=== PATIENT | female | born 1935 | race Caucasian/White ===

== ENCOUNTER 2019-07-27 19:33 | Observation (INO) | payer MEDICARE, OTHER ==
[2019-07-27 20:32] LABS: #Basophils 0.1 thou/uL (0.0-0.2); #Eosinphils 0.2 thou/uL (0.0-0.7); #Lymphocytes 2.2 thou/uL (1.20-3.40); #Neutrophils 5.2 thou/uL (1.40-6.50); %Eosinophils 2.4 % (0.0-10.0); %Lymphocytes 25.8 % (21.0-51.0); %Monocytes 11.1 % (0.0-10.0); %Neutrophils 59.7 % (42.0-75.0); Hemoglobin 8.5 g/dL (12.0-16.0); Mean Corpuscular HGB CONC 32.6 g/dL (32.0-36.0); Mean Corpuscular Hemoglobin 28.1 pg (27.0-31.0); Mean Corpuscular Volume 86.4 fL (78.0-98.0); Mean Platelet Volume 6.7 fL (7.4-10.4); Platelet Count 401 thou/uL (130-400); RBC Distribution Width 15.5 % (11.5-14.5); Red Blood Cell (RBC) Count 3.01 mill/uL (4.20-5.40); White Blood Cell (WBC) Count 8.7 thou/uL (4.8-10.8)
[2019-07-27 20:45] LABS: ALT (SGPT) 10 U/L (8-55); AST (SGOT) 11 U/L (5-34); Alkaline Phosphatase 72 U/L (40-150); Anion Gap 16 mmol/L (10-20); BUN (Urea Nitrogen) 19 mg/dL (9.8-20.1); Bilirubin, Total 0.6 mg/dL (0.2-1.2); CK (CPK) 105 U/L (29-168); Calc. Creatinine Clearance 0 mL/min (70-130); Calcium 9.5 mg/dL (7.8-10.44); Carbon Dioxide 19 mmol/L (23-31); Chloride 104 mmol/L (98-107); Estimated GFR-MDRD 29; Globulin 3.2 g/dL (2.4-3.5); Glucose 135 mg/dL (83-110); Lipase 50 U/L (8-78); Potassium 3.7 mmol/L (3.5-5.1); Protein, Total 7.2 g/dL (6.0-8.3); Sodium 135 mmol/L (136-145)
--- NOTE | 2019-07-27 21:07 | RAD ---
PORTABLE CHEST ONE VIEW: Date: 07-27-19 Time: 8:32 p.m. History: Chest pain, shortness of breath. FINDINGS/IMPRESSION: A prosthetic valve is seen. The heart size is borderline. The aorta is tortuous. The lungs are expand ed without lobar consolidation, pneumothoraces, karley pulmonary edema, or pleural effusions are ident ified. There is a fracture involving the neck of the right humerus. POS: RACHAEL
[2019-07-27 22:30] LABS: Bacteria/HPF None Seen HPF (None Seen); Bilirubin Negative (Negative); Blood, Urine Negative (Negative); Clarity Clear (Clear); Glucose, Urine (Dipstick) Normal (Negative); Leukocyte 250 Leu/uL (Negative); Nitrite Negative (Negative); Protein, Urine (Dipstick) Negative (Neg-Trace); RBC/HPF 0-3 HPF (0-3); Squamous Epithelial None Seen HPF (0-3); Urobilinogen Normal mg/dL (Less than 2)
[2019-07-27] MEDS ORDERED: cefTRIAXone\\ROCEPHIN 1 GM VIAL ONE (23:07)
[2019-07-28 00:12] LABS: Troponin I Less than 0.010 ng/mL (< 0.028)
[2019-07-28] MEDS ORDERED: Dextrose 50% Abboject 50 ML SYRINGE SLOW IVP PRN (01:16)
[2019-07-28] MEDS ORDERED: Dextrose 5% in Water 1,000 ML IV PRN (01:16)
[2019-07-28] MEDS ORDERED: HumaLOG 300 UNITS/3 ML VIAL SC PRN ×2 (01:16)
[2019-07-28] MEDS ORDERED: hydrALAZINE 20 MG/ML VIAL SLOW IVP PRN (01:16)
[2019-07-28] MEDS: Acetaminophen 325 MG TAB PO PRN ×4 (01:30→21:26)
[2019-07-28 02:24] VITALS: BMI 27.1
--- NOTE | 2019-07-28 02:55 | HP ---
PRIMARY CARE PHYSICIAN: Dr. Elena Charlton. CHIEF COMPLAINT: "I have been having a very hard this past month." HISTORY OF PRESENT ILLNESS: Ms. Chavez is a very pleasant 84-year-old female, who has a history of diabetes mellitus as well as atrial fibrillation. She had a mitral valve replacement. She says about a year ago in [place] and says that in the past month she has been having a very hard. She says that about a month ago, she fell and fractured her humerus and wrist. She says she saw Dr. Cunningham about this and because of her age, they felt it was best to do heal conservatively. She says that she had gone to rehab for several weeks and then returned to an assisted living facility at the [facility]. She initially was living there independently and then transitioned to assisted living, but says she did not do very well with this because she was not getting the help that she needed and then went back to the independent part, but then had home instead come where she has 24 hour care. She says that over the last few weeks she has been having trouble sleeping, saying that it is hard to breathe when she lays flat and she has to sit almost upright in order to breathe. She says that when she does lay back, she feels a pressure all over her chest or heaviness. She also says that she has been snoring a lot as well and in some times during the day she will have periods where she just feels like a coldness in her body and she feels anxious or shaky. This has been going on for the last 3 to 4 days. She also notes some swelling in her feet, but says that this has been normal for her and not any different. Her son has been here over the weekend to visit and he was leaving to go back to [place] where he lives and she felt that she probably should have this checked out because she will be alone in the next day. When she was evaluated in the ER, she had a chest x-ray which was essentially clear. Lab work was done, which also did not show any significant findings other than some pyuria and she is being placed in observation. When asked if she has had any chest done for her heart recently, she says that she has had some EKGs done, but she is not really sure if she has had any echo. She says that she sees a Dr. Madai Estevez at the [facility] in the [place] and she had planned to do what sounds like a possible echocardiogram, but this was to be done in August of this year. REVIEW OF SYSTEMS: CONSTITUTIONAL: She did have fever about 2 days ago as 100.6, which was checked by her provider. No chills. No night sweats. No weight loss. HEENT: No headaches. No dizziness. No visual changes. No sore throat. No rhinorrhea, neck pain. No adenopathy. PULMONARY: No hemoptysis, no cough, no wheezing. CARDIOVASCULAR: As the history of present illness. GASTROINTESTINAL: She denies any abdominal pain. No nausea. No vomiting. No change in bowels. GENITOURINARY: No urinary frequency or hematuria. No hesitancy. NEUROLOGIC: No focal weakness or numbness. No seizures. PSYCHIATRIC: No symptoms of anxiety or depression. SKIN AND INTEGUMENT: No skin changes. No rash. PAST MEDICAL HISTORY: Significant for a humerus and wrist fracture on the right, history of atrial fibrillation, but she says this went away ever since she had her mitral valve replaced. Also has a history of diabetes mellitus, diabetic peripheral neuropathy, chronic kidney disease, and hypothyroidism. PAST SURGICAL HISTORY: She had a minimally invasive mitral valve replacement on November 19, 2018. She has had a cholecystectomy, hysterectomy as well. ALLERGIES: CODEINE, WHICH CAUSES A RASH. SOCIAL HISTORY: She is a nonsmoker. She occasionally drinks wine. She is . She has one living child, she had 2 originally. FAMILY HISTORY: There are no significant diseases in the family. CURRENT MEDICATIONS: 1. Alprazolam 0.25 mg once at bedtime. 2. Singulair 10 mg daily. 3. Amiodarone 200 mg once daily. 4. Atorvastatin 10 mg daily. 5. Furosemide 20 mg daily. 6. Eliquis 2.5 mg twice a day. 7. Flomax 0.4 mg daily. 8. Metoprolol succinate 50 mg daily. 9. Effient 10 mg once a day. 10. Levothyroxine 100 mcg daily. 11. Protonix 40 mg daily. 12. Potassium chloride 20 mEq once a day. 13. Hydralazine 50 mg t.i.d. 14. Trelegy Ellipta 100/62.5 one puff daily. PHYSICAL EXAMINATION: GENERAL: She is alert and oriented. She appears a little bit anxious. She is well developed and well nourished, no acute distress however. VITAL SIGNS: Blood pressure is 152/69, heart rate 99, respiratory rate of 18, temperature is 98.2, O2 saturation is 98% on room air. HEENT: Pupils are equal, round, and reactive. Extraocular muscles are intact. Sclerae anicteric. Throat, no erythema, no exudates. NECK: No adenopathy. No bruits. LUNGS: Clear to auscultation. There is no wheezing, no rales, no rhonchi. CARDIOVASCULAR: She has a normal S1, S2. There is no S3 or S4. No murmurs, clicks or rubs. ABDOMEN: Obese. It is soft. It is nontender, nondistended. Positive for bowel sounds. There is no rebound or guarding. EXTREMITIES: There is no edema. She has some varicose veins. No calf tenderness. No joint effusions and her right arm is in a sling. NEUROLOGIC: She is moving all extremities. SKIN AND INTEGUMENT: No skin changes. No rash. LAB RESULTS: Her EKGs, sinus rhythm, the rate is 85. She has some poor R-wave progression in V1 through V3 and some T-wave inversion in 1 and aVL. This is by my reading. Chest x-ray was negative for any effusions or any infiltrates and this is also by my reading. The white blood cell count 8.7, hemoglobin 8.5, hematocrit is 26, platelet count is 401. Sodium 135, potassium 3.7, chloride is 104, CO2 is 19, BUN of 19, creatinine 1.69, glucose is 135. Troponin is less than 0.010. Urinalysis was positive for leukocyte esterase, but otherwise okay. ASSESSMENT: This is a pleasant 84-year-old female, who presents with dyspnea on exertion and what sounds historically like some PND and orthopnea despite her proBNP being normal. She will be placed in observation. We will request her records from Dr. Estevez and her phone number is [phone]. We will get an echocardiogram and hopefully, we can compare it to the ones from Dr. Estevez. If there is a significant decrease in her ejection fraction, then potentially further testing may need to be done. We will also consult Cardiology. 1. Pyuria. The patient is basically asymptomatic and only her UA is only significant for white cells. I suspect she does not have any significant urinary tract infection and therefore, additional antibiotics are not warranted at this time. 2. Diabetes mellitus. We will need to reconcile and restart her medications and also place her on a sliding scale. 3. Chronic kidney disease. In review of her records, her chronic kidney disease appears to be stable with only a slight increase in the creatinine. 4. Hypothyroidism. Clinically, she is euthyroid. We can check a TSH with her a.m. labs. 5. Anxiety. She appears to have some symptoms consistent with anxiety and it is possible that all of her symptoms may be in fact related to generalized anxiety. Job ID: [id number]
[2019-07-28 03:20] LABS: #Basophils 0.1 thou/uL (0.0-0.2); #Eosinphils 0.2 thou/uL (0.0-0.7); #Lymphocytes 1.7 thou/uL (1.20-3.40); #Neutrophils 4.5 thou/uL (1.40-6.50); %Basophils 0.8 % (0.0-1.0); %Eosinophils 3.3 % (0.0-10.0); %Lymphocytes 22.8 % (21.0-51.0); %Monocytes 12.8 % (0.0-10.0); %Neutrophils 60.3 % (42.0-75.0); Hemoglobin 7.8 g/dL (12.0-16.0); Mean Corpuscular Hemoglobin 28.5 pg (27.0-31.0); Mean Platelet Volume 6.6 fL (7.4-10.4); Platelet Count 354 thou/uL (130-400); RBC Distribution Width 15.5 % (11.5-14.5); Red Blood Cell (RBC) Count 2.72 mill/uL (4.20-5.40); White Blood Cell (WBC) Count 7.4 thou/uL (4.8-10.8)
[2019-07-28 03:24] LABS: Troponin I Less than 0.010 ng/mL (< 0.028)
[2019-07-28 04:29] LABS: Anion Gap 15 mmol/L (10-20); BUN (Urea Nitrogen) 17 mg/dL (9.8-20.1); Calc. Creatinine Clearance 31 mL/min (70-130); Calcium 9.1 mg/dL (7.8-10.44); Carbon Dioxide 19 mmol/L (23-31); Chloride 107 mmol/L (98-107); Estimated GFR-MDRD 32; Glucose 96 mg/dL (83-110); Potassium 3.6 mmol/L (3.5-5.1); Sodium 137 mmol/L (136-145)
[2019-07-28] MEDS: Famotidine 20 MG TAB PO SCH (08:36)
--- NOTE | 2019-07-28 08:42 | PDOC.HOSPP ---
- Subjective Encounter Date: 07/28/19 Subjective: feels much better today, she was able to sleep flat on her back she is not sure if she actually had an echocardiogram with Dr Estevez. - Objective Vital Signs & Weight: Vital Signs (12 hours) Temp Pulse Resp BP Pulse Ox 07/28/19 08:00 98.5 F 71 16 148/65 H 94 L 07/28/19 03:57 98.8 F 72 18 168/71 H 96 07/28/19 00:47 98.7 F 76 20 175/74 H 95 Weight Weight 160 lb 11.2 oz I&O: 07/27/19 07/28/19 07/29/19 06:59 06:59 06:59 Intake Total 440 Output Total 650 300 Balance -210 -300 Result Diagrams: 07/28/19 02:54 07/28/19 02:54 Hospitalist ROS - Medication Medications: Active Medications Generic Name Dose Route Start Last Admin Trade Name Freq PRN Reason Stop Dose Admin Acetaminophen 650 mg 07/28/19 01:16 07/28/19 01:30 Tylenol PO 650 mg Q4H PRN Administration Headache/Fever/Mild Pain (1-3) Famotidine 20 mg 07/28/19 09:00 07/28/19 08:36 Pepcid PO 20 mg DAILY ANTONIO Administration - Exam General Appearance: NAD, awake alert Eye: PERRL, anicteric sclera ENT: normocephalic atraumatic, no oropharyngeal lesions, moist mucosa Neck: supple, symmetric, no JVD, no thyromegaly, no lymphadenopathy, no carotid bruit Heart: RRR, no murmur, no gallops, no rubs, normal peripheral pulses Respiratory: CTAB, no wheezes, no rales, no ronchi, normal chest expansion, no tachypnea, normal percussion Gastrointestinal: soft, non-tender, non-distended, normal bowel sounds, no palpable masses, no hepatomegaly, no splenomegaly, no bruit Extremities: no cyanosis, no clubbing, no edema Skin: normal turgor, no lesions, no rashes Neurological: CN's grossly intact, normal sensation to touch, no weakness, no focal deficits, no new deficit Musculoskeletal: normal tone, normal strength, no muscle wasting Hosp A/P (1) Shortness of breath Code(s): R06.02 - SHORTNESS OF BREATH Status: Acute (2) Diabetes Code(s): E11.9 - TYPE 2 DIABETES MELLITUS WITHOUT COMPLICATIONS Status: Chronic (3) Anemia Code(s): D64.9 - ANEMIA, UNSPECIFIED Status: Chronic (4) CKD (chronic kidney disease) Code(s): N18.9 - CHRONIC KIDNEY DISEASE, UNSPECIFIED Status: Chronic (5) Hypothyroidism Code(s): E03.9 - HYPOTHYROIDISM, UNSPECIFIED Status: Chronic - Plan cardiac---awaiting the echo but seems to be doing well. will resume her cardiac meds DM---continue her regimens anemia---seems chronic, will recheck in am. ua is weakly poistive, no ATB given
[2019-07-28] MEDS: Tamsulosin HCl 0.4 MG CAP PO SCH (10:49)
[2019-07-28] MEDS: Furosemide 20 MG TAB PO SCH (10:49)
[2019-07-28] MEDS: hydrALAZINE 25 MG TAB PO SCH ×3 (10:49→21:25)
[2019-07-28] MEDS: Atorvastatin Calcium 10 MG TAB PO SCH (10:49)
[2019-07-28] MEDS: Amiodarone 200 MG TAB PO SCH (10:49)
[2019-07-28] MEDS: Prasugrel 10 MG TAB PO SCH ×2 (10:50→11:35)
[2019-07-28] MEDS: Apixaban 2.5 MG TAB PO SCH ×3 (10:50→21:25)
[2019-07-28 13:45] LABS: Iron 29 ug/dL (50-170); Iron Binding Capacity, Total 261 mcg/dL (265-497)
--- NOTE | 2019-07-28 14:27 | CON ---
DATE OF CONSULTATION: 07/28/2019 REASON FOR CONSULTATION: Shortness of breath. HISTORY OF PRESENT ILLNESS: Ms. Chavez is a pleasant 84-year-old white female , who comes to the hospital for shortness of breath. She has multiple complaints actually. She had a mitral valve replaced minimally invasive route in [place] of 2017. She states about a month later, she had a stent placed. This was all planned this way. This was all done in [facility]. She has a painting supervisor in the [employer], Dr. Estevez. She is in the [place]. She is here, she has not felt well. She lives at the [place] [facility] from independent care to assisted living and now she is back in independent care. She had a fall recently and broke her right humerus as well as her right wrist. It was thought to just better treat this medically as she is at high risk for surgery. She is also on Eliquis and prasugrel and apparently, the Eliquis is for AFib, but she is also on amiodarone. She denies any chest pain. She only feels some discomfort on her abdomen at times, says something is on her chest. She had a bowel movement today and it was loose. She had a temperature of 100.6 two or three days ago. She had noted some swelling on her feet, but currently they are better. She is PAST MEDICAL HISTORY: 1. Paroxysmal atrial fibrillation. 2. Mitral valve replacement. 3. Type 2 diabetes. 4. Peripheral neuropathy from diabetes. 5. Chronic kidney disease. 6. Hypothyroidism. 7. Hypertension. PAST SURGICAL HISTORY: 1. Minimally invasive mitral valve replacement on November 19, 2018. 2. Cholecystectomy. 3. Hysterectomy. 4. Heart catheterization with stenting about a month after her catheterization. MEDICATIONS: Outpatient medications; 1. Alprazolam. 2. Singulair. 3. Amiodarone 200 mg a day. 4. Atorvastatin 10 mg a day. 5. Furosemide 20 mg a day. 6. Eliquis 2.5 twice a day. 7. Flomax. 8. Metoprolol succinate 50 mg a day. 9. Effient 10 mg a day. 10. Levothyroxine 100 mcg a day. 11. Protonix 40 mg a day. 12. Potassium chloride 20 mEq daily. 13. Hydralazine 50 mg t.i.d. 14. Trelegy Ellipta 100/62.5 one puff daily. ALLERGIES: CODEINE CAUSES GREG. SOCIAL HISTORY: Occasional wine use. No tobacco or drugs. FAMILY HISTORY: Noncontributory. REVIEW OF SYSTEMS: A 12-point review of systems was done and was all negative unless stated in the history of present illness. PHYSICAL EXAMINATION: VITAL SIGNS: Temperature 98.3, pulse 78, respiratory rate 18, sat 97% on room air, blood pressure 146/65. GENERAL: Awake, alert, and oriented x3, in no distress. HEENT: Normocephalic and atraumatic. NECK: Supple. LUNGS: Clear. CARDIOVASCULAR: S1 and S2. No S3 or S4. There is a grade 2/6 holosystolic murmur at the apex. No mechanical click is heard. ABDOMEN: Soft, positive bowel sounds. EXTREMITIES: No edema. SKIN: Warm and dry. LABORATORY DATA: Laboratory work was reviewed; CBC with a white count of 8.7, hemoglobin of 8.5 down to 7.8, hematocrit of 24, platelet count 454. Coags; D- dimer of 0.74. Chemistries unremarkable except for creatinine 1.56, GFR 32. Troponin is undetectable x2. BNP was 89. TSH was 0.62. Glucose was 227. UA with 250 leukocyte esterase, and 11 to 20 white cells. EKG was reviewed. Chest x-ray was reviewed. No acute cardiopulmonary issues. Mitral valve replacement is seen as well as a broken right humerus. ASSESSMENT/PLAN: 1. Shortness of breath, may be multifactorial. Echocardiogram pending. 2. History of coronary artery disease. No acute coronary syndrome. We will request records from the [facility]. 3. Fever and diarrhea. Primary Care is working this up for now. 4. Anemia. Would do iron panel to see if this is chronic anemia, if she has normal MCV and MCH, so this may or may not go with this. RDW is high. We will get iron studies as she may need to have her Eliquis discontinued. 5. Thank you for letting us to participate in the care of your patient. We will follow. RECOMMENDATIONS: 1. Echocardiogram pending. 2. Would not diurese any further. 3. Continue home regimen. 4. Continue to trend hemoglobin and do iron studies. Job ID: [id number] [facility]
[2019-07-28] MEDS ORDERED: ALPRAZolam 0.25 MG TAB PO SCH (16:15)
[2019-07-28] MEDS: Mometasone 100 MCG HFA INHALER INH SCH (18:58)
[2019-07-28] MEDS: ALPRAZolam 0.25 MG TAB PO SCH (21:25)
[2019-07-28] MEDS: Montelukast Sodium 10 mg Tablet PO SCH (21:25)
[2019-07-29] MEDS: Acetaminophen 325 MG TAB PO PRN ×2 (01:45→13:19)
[2019-07-29] MEDS ORDERED: ALPRAZolam 0.25 MG TAB PO SCH (03:15)
[2019-07-29] MEDS: Levothyroxine Sodium 100 MCG TAB PO SCH (03:44)
[2019-07-29 05:57] LABS: #Basophils 0.1 thou/uL (0.0-0.2); #Eosinphils 0.2 thou/uL (0.0-0.7); #Lymphocytes 1.6 thou/uL (1.20-3.40); #Monocytes 0.7 thou/uL (0.11-0.59); #Neutrophils 5.4 thou/uL (1.40-6.50); %Basophils 0.8 % (0.0-1.0); %Eosinophils 2.4 % (0.0-10.0); %Lymphocytes 20.4 % (21.0-51.0); %Monocytes 8.4 % (0.0-10.0); Hemoglobin 7.8 g/dL (12.0-16.0); Mean Corpuscular HGB CONC 32.4 g/dL (32.0-36.0); Mean Corpuscular Hemoglobin 28.3 pg (27.0-31.0); Mean Corpuscular Volume 87.4 fL (78.0-98.0); Mean Platelet Volume 6.6 fL (7.4-10.4); Platelet Count 346 thou/uL (130-400); RBC Distribution Width 15.3 % (11.5-14.5); Red Blood Cell (RBC) Count 2.76 mill/uL (4.20-5.40)
[2019-07-29 06:18] LABS: Anion Gap 12 mmol/L (10-20); BUN (Urea Nitrogen) 16 mg/dL (9.8-20.1); Calc. Creatinine Clearance 30 mL/min (70-130); Calcium 8.9 mg/dL (7.8-10.44); Carbon Dioxide 21 mmol/L (23-31); Chloride 107 mmol/L (98-107); Estimated GFR-MDRD 30; Glucose 102 mg/dL (83-110); Potassium 3.5 mmol/L (3.5-5.1); Sodium 136 mmol/L (136-145)
[2019-07-29] MEDS: Mometasone 100 MCG HFA INHALER INH SCH ×2 (06:50→20:16)
[2019-07-29] MEDS: Atorvastatin Calcium 10 MG TAB PO SCH (08:19)
[2019-07-29] MEDS: Furosemide 20 MG TAB PO SCH (08:19)
[2019-07-29] MEDS: Famotidine 20 MG TAB PO SCH (08:19)
[2019-07-29] MEDS: Tamsulosin HCl 0.4 MG CAP PO SCH (08:19)
[2019-07-29] MEDS: hydrALAZINE 25 MG TAB PO SCH ×3 (08:19→20:57)
[2019-07-29] MEDS: Prasugrel 10 MG TAB PO SCH (08:20)
[2019-07-29] MEDS: Amiodarone 200 MG TAB PO SCH (08:20)
[2019-07-29] MEDS: Apixaban 2.5 MG TAB PO SCH ×2 (08:20→20:57)
--- NOTE | 2019-07-29 09:54 | PDOC.HOSPP ---
- Subjective Encounter Date: 07/29/19 Subjective: she no specific complaints - Objective Vital Signs & Weight: Vital Signs (12 hours) Temp Pulse Resp BP BP Pulse Ox 07/29/19 07:13 98.1 F 70 16 149/68 H 96 07/29/19 03:06 98.2 F 66 18 142/67 H 96 07/28/19 23:32 65 18 118/57 L 95 Weight Weight 158 lb 12.8 oz I&O: 07/28/19 07/29/19 07/30/19 06:59 06:59 06:59 Intake Total 440 1160 Output Total 650 2050 Balance -210 -890 Result Diagrams: 07/29/19 05:38 07/29/19 05:38 Additional Labs: Accuchecks 07/29/19 07/28/19 07/28/19 06:01 20:57 17:01 POC Glucose 111 H 151 H 114 H 07/28/19 10:47 POC Glucose 227 H Hospitalist ROS - Medication Medications: Active Medications Generic Name Dose Route Start Last Admin Trade Name Alex PRN Reason Stop Dose Admin Acetaminophen 650 mg 07/28/19 01:16 07/29/19 01:45 Tylenol PO 650 mg Q4H PRN Administration Headache/Fever/Mild Pain (1-3) Albuterol/Ipratropium 3 ml 07/28/19 13:00 07/29/19 06:49 Duoneb NEB Not Given [id number] ANTONIO Alprazolam 0.25 mg 07/28/19 21:00 07/28/19 21:25 Xanax PO 0.25 mg HS ANTONIO Administration Amiodarone HCl 200 mg 07/28/19 09:00 07/29/19 08:20 Cordarone PO 200 mg DAILY ANTONIO Administration Apixaban 2.5 mg 07/28/19 09:00 07/29/19 08:20 Eliquis PO 2.5 mg BID ANTONIO Administration Atorvastatin Calcium 10 mg 07/28/19 09:00 07/29/19 08:19 Lipitor PO 10 mg DAILY ANTONIO Administration Famotidine 20 mg 07/28/19 09:00 07/29/19 08:19 Pepcid PO 20 mg DAILY ANTONIO Administration Furosemide 20 mg 07/28/19 09:00 07/29/19 08:19 Lasix PO 20 mg DAILY ANTONIO Administration Hydralazine HCl 50 mg 07/28/19 09:00 07/29/19 08:19 Apresoline PO 50 mg TID ANTONIO Administration Insulin Human Lispro 0 units 07/28/19 01:16 07/28/19 10:51 Humalog SC 4 unit .MODERATE SLIDING SC PRN Administration Moderate Correctional Scale Levothyroxine Sodium 100 mcg 07/29/19 06:00 07/29/19 03:44 Synthroid PO 100 mcg 0600 ANTONIO Administration Metoprolol Succinate 50 mg 07/28/19 09:00 07/29/19 08:20 Toprol Xl PO 50 mg DAILY ANTONIO Administration Mometasone Furoate 1 puff 07/28/19 18:30 07/29/19 06:50 Asmanex Hfa 100 Mcg INH Not Given BID-RT ANTONIO Montelukast Sodium 10 mg 07/28/19 21:00 07/28/19 21:25 Singulair PO 10 mg HS ANTONIO Administration Pantoprazole Sodium 40 mg 07/28/19 09:00 07/29/19 08:19 Protonix PO 40 mg DAILY ANTONIO Administration Prasugrel 10 mg 07/28/19 09:00 07/29/19 08:20 Effient PO 10 mg DAILY ANTONIO Administration Tamsulosin HCl 0.4 mg 07/28/19 09:00 07/29/19 08:19 Flomax PO 0.4 mg DAILY ANTONIO Administration - Exam General Appearance: NAD ENT: normocephalic atraumatic, no oropharyngeal lesions, moist mucosa Neck: supple, symmetric, no JVD, no thyromegaly, no lymphadenopathy, no carotid bruit Heart: RRR, no murmur, no gallops, no rubs, normal peripheral pulses Respiratory: CTAB, no wheezes, no rales, no ronchi, normal chest expansion, no tachypnea, normal percussion Gastrointestinal: tender to palpation (tender on palpation of epigastric area) Extremities: no cyanosis, no clubbing, no edema Skin: normal turgor, no lesions, no rashes Hosp A/P (1) Shortness of breath Code(s): R06.02 - SHORTNESS OF BREATH Status: Acute (2) Diabetes Code(s): E11.9 - TYPE 2 DIABETES MELLITUS WITHOUT COMPLICATIONS Status: Chronic (3) Anemia Code(s): D64.9 - ANEMIA, UNSPECIFIED Status: Chronic (4) CKD (chronic kidney disease) Code(s): N18.9 - CHRONIC KIDNEY DISEASE, UNSPECIFIED Status: Chronic (5) Hypothyroidism Code(s): E03.9 - HYPOTHYROIDISM, UNSPECIFIED Status: Chronic - Plan cardiac---awaiting the echo but seems to be doing well. will resume her cardiac meds, appreciate Cardiology follow-up. DM---continue her regimens anemia---seems chronic, and hgb stable on this hospitalisation, but I did review her labs from 04/02/2019 and her hgb was 10, so it seems that she has been slowly becoming more and more anemic---she denies melena---will order stool guaiac--will do iron studies---seems that she needs a GI workup. ua is weakly poistive, no ATB given
[2019-07-29 10:00] LABS: Iron 33 ug/dL (50-170); Iron Binding Capacity, Total 249 mcg/dL (265-497)
[2019-07-29] MEDS: Ferrous Sulfate 325 MG TAB PO SCH (16:44)
--- NOTE | 2019-07-29 18:29 | PDOC.CPN ---
- Subjective Date: 07/29/19 Time: 05:30 - Review of Systems General: denies: fever/chills, weight/appetite/sleep changes, night sweats, fatigue Respiratory: denies: cough, congestion, shortness of breath, exercise intolerance Cardiovascular: denies: chest pain, palpitation, edema, paroxysmal nocturnal dyspnea, orthopnea Gastrointestinal: denies: nausea, vomiting, diarrhea, constipation, abd pain, GI bleeding Musculoskeletal: denies: pain, tenderness, stiffness, swelling, arthritis/ arthralgias Neurological: denies: numbness, syncope, seizure, weakness - Objective Allergies/Adverse Reactions: Allergies Allergy/AdvReac Type Severity Reaction Status Date / Time codeine Allergy Rash Verified 07/28/19 01:34 Visit Medications: Current Medications Acetaminophen (Tylenol) 650 mg PO Q4H PRN PRN Reason: Headache/Fever/Mild Pain (1-3) Last Admin: 07/29/19 13:19 Dose: 650 mg Albuterol/Ipratropium (Duoneb) 3 ml NEB [id number] [facility] Last Admin: 07/29/19 12:33 Dose: Not Given Alprazolam (Xanax) 0.25 mg PO HS [facility] Last Admin: 07/28/19 21:25 Dose: 0.25 mg Amiodarone HCl (Cordarone) 200 mg PO DAILY [facility] Last Admin: 07/29/19 08:20 Dose: 200 mg Apixaban (Eliquis) 2.5 mg PO BID [facility] Last Admin: 07/29/19 08:20 Dose: 2.5 mg Atorvastatin Calcium (Lipitor) 10 mg PO DAILY [facility] Last Admin: 07/29/19 08:19 Dose: 10 mg Dextrose/Water (Dextrose 50%) 25 gm SLOW IVP PRN PRN PRN Reason: Hypoglycemia Famotidine (Pepcid) 20 mg PO DAILY [facility] Last Admin: 07/29/19 08:19 Dose: 20 mg Ferrous Sulfate (Feosol) 325 mg PO BID-WM [facility] Last Admin: 07/29/19 16:44 Dose: 325 mg Furosemide (Lasix) 20 mg PO DAILY [facility] Last Admin: 07/29/19 08:19 Dose: 20 mg Glucagon (Glucagon) 1 mg IM PRN PRN PRN Reason: Hypoglycemia Hydralazine HCl (Apresoline) 10 mg SLOW IVP Q4H PRN PRN Reason: SBP > 180 and HR < 70 Hydralazine HCl (Apresoline) 50 mg PO TID [facility] Last Admin: 07/29/19 14:34 Dose: 50 mg Dextrose/Water (D5w) 1,000 mls @ 0 mls/hr IV .Q0M PRN PRN Reason: Hypoglycemia Insulin Human Lispro (Humalog) 0 units SC .MODERATE SLIDING SC PRN PRN Reason: Moderate Correctional Scale Last Admin: 07/28/19 10:51 Dose: 4 unit Insulin Human Lispro (Humalog) 0 units SC .BEDTIME SLIDING SC PRN PRN Reason: Bedtime Correctional Scale Levothyroxine Sodium (Synthroid) 100 mcg PO 0600 [facility] Last Admin: 07/29/19 03:44 Dose: 100 mcg Metoprolol Succinate (Toprol Xl) 50 mg PO DAILY [facility] Last Admin: 07/29/19 08:20 Dose: 50 mg Mometasone Furoate (Asmanex Hfa 100 Mcg) 1 puff INH BID-RT [facility] Last Admin: 07/29/19 06:50 Dose: Not Given Montelukast Sodium (Singulair) 10 mg PO HS [facility] Last Admin: 07/28/19 21:25 Dose: 10 mg Pantoprazole Sodium (Protonix) 40 mg PO DAILY [facility] Last Admin: 07/29/19 08:19 Dose: 40 mg Prasugrel (Effient) 10 mg PO DAILY [facility] Last Admin: 07/29/19 08:20 Dose: 10 mg Tamsulosin HCl (Flomax) 0.4 mg PO DAILY [facility] Last Admin: 07/29/19 08:19 Dose: 0.4 mg Vital Signs & Weight: Vital Signs Temp Pulse Resp BP Pulse Ox 07/29/19 16:00 98.2 F 61 18 130/58 L 96 07/29/19 11:36 98.3 F 62 16 115/57 L 96 07/29/19 07:13 98.1 F 70 16 149/68 H 96 Weight 158 lb 12.8 oz - Physical Exam General: alert & oriented x3 HEENT: mucus membranes moist Neck: supple neck Cardiac: regular rate and rhythm, regular rate, systolic murmur Lungs: clear to auscultation Neuro: grossly intact Abdomen: active bowel sounds, soft, non-tender Skin: clear Musculoskeletal: normal range of motion - Labs Result Diagrams: 07/29/19 05:38 07/29/19 05:38 Troponin/CKMB Troponin I Less than 0.010 ng/mL (< 0.028) 07/28/19 02:54 - Telemetry Sinus rhythms and dysrhythmias: sinus rhythm - Assessment/Plan Assessment/Plan: 1. S/P MVR, normal funcitoning on echo today. 2. CAD, PCI to Prox LAD ALEE. Continue antiplatelet. 3. Paroxysmal afib 4. Iron deficiency Anemia 5. Fever and diarrhea PLAN: - She is on both Eliquis and effient high risk for bleeding, Her hgb is lower than baseline and it seems iron deficiency anemia. - Will stop Eliquis, continue Effient. - Work up for anemia per primary team. May need GI evaluation. - CV stable. - She is to follow up with her Inspector General in [place]. - Will sign off. Please call with any questions.
[2019-07-29] MEDS: Montelukast Sodium 10 mg Tablet PO SCH (20:57)
[2019-07-30] MEDS: Acetaminophen 325 MG TAB PO PRN (00:22)
[2019-07-30] MEDS: ALPRAZolam 0.25 MG TAB PO SCH (02:22)
[2019-07-30] MEDS: Levothyroxine Sodium 100 MCG TAB PO SCH (06:16)
[2019-07-30] MEDS: Mometasone 100 MCG HFA INHALER INH SCH (07:46)
[2019-07-30 08:07] VITALS: BP 148/65; TEMP 98.7
[2019-07-30] MEDS: Apixaban 2.5 MG TAB PO SCH (09:26)
[2019-07-30] MEDS: Amiodarone 200 MG TAB PO SCH (09:27)
[2019-07-30] MEDS: Ferrous Sulfate 325 MG TAB PO SCH (09:27)
[2019-07-30] MEDS: Tamsulosin HCl 0.4 MG CAP PO SCH (09:27)
[2019-07-30] MEDS: hydrALAZINE 25 MG TAB PO SCH (09:27)
[2019-07-30] MEDS: Prasugrel 10 MG TAB PO SCH (09:27)
[2019-07-30] MEDS: Furosemide 20 MG TAB PO SCH (09:27)
[2019-07-30] MEDS: Famotidine 20 MG TAB PO SCH (09:27)
[2019-07-30] MEDS: Atorvastatin Calcium 10 MG TAB PO SCH (09:28)
--- NOTE | 2019-07-31 06:19 | DIS ---
DATE OF ADMISSION: 07/27/2019 DATE OF DISCHARGE: 07/30/2019 HOSPITAL COURSE: The patient was admitted to our hospital on 07/27/2019. Initially, she had multiple complaints, she underwent mitral valve replacement in beginning of this year and fell recently, broke her humerus and wrist, and over the past few weeks, she has been having trouble sleeping. She stated that it is hard to breathe when lying flat, feeling pressure and heaviness all over her chest and recently feeling anxious and shaky and that is why she presented to our emergency room. During her stay, her BNP level was checked, and it was normal. A consultation with Cardiology was requested and they saw her, and echocardiogram was done, that showed no change from previous echocardiograms and did not show any acute abnormalities. She was found to be anemic and feels that her anemia has been getting worse. I did see outpatient labs done in February and her hemoglobin was done and currently it is around 8, but on a previous admission to us, her hemoglobin was around 9 and 8, so it has been fluctuating, but during her stay now, it remained stable. We did do a stool guaiac and it was negative for blood. We did do iron studies and they were low indicating iron deficiency anemia, the patient has been following with Nephrology for chronic kidney disease. Her GFR is around 30, so this could be the cause of her anemia, but she is also on blood thinners, although she is not exhibiting any signs of gastrointestinal bleed. Cardiology wanted to stop Eliquis and continue with Effient and I advised her to follow up with her Link Trainer. I also called Gastroenterology, Dr. Sophia Liz and spoke with him about her and I gave her his number, so she will call his office and schedule for a followup of possible EGD or colonoscopy, but for the time being, I started her on iron and advised her to follow with her primary care physician in 1 to 2 weeks and she most likely needs repeat blood work in a couple of months to see if she is improving. During her stay as well, her blood pressure has been on the high side. Her heart rate has been borderline low around 60s, so I increased her hydralazine from t.i.d. to q.i.d. PHYSICAL EXAMINATION: GENERAL: Today, the patient is feeling well. She complained of tension in her jaw due to the fact that she is clenching on her teeth during the night. She tried also not to take her alprazolam yesterday. VITAL SIGNS: Her blood pressure is 148/65, heart rate of 63, temperature is 98.7. HEENT: Head is nontraumatic, normocephalic. Pupils equal and reactive. Extraocular movements are intact. Nonicteric sclerae with injected conjunctivae. Oral mucosa normal. Nasal mucosa normal. NECK: Supple. No adenopathy, no mass. Thyroid is not palpable. Trachea is midline. No supraclavicular lymphadenopathy. HEART: S1 and S2, regular. No murmurs. ABDOMEN: Bowel sounds are positive, nontender abdomen. No hepatosplenomegaly. EXTREMITIES: No lower extremity edema. No cyanosis. NEUROLOGIC: Cranial nerves 2 through 12 within normal limits. Normal motor function. Normal sensory function and reflexes. LABORATORY DATA: Blood work from yesterday showed a hemoglobin of 7.8, which is the same as the day before, her platelets are 346. Her glucose has been well controlled. Last creatinine was 1.62, GFR 30. The patient will be discharged to home, advised to follow with Nephrology, Primary Care Physician and call Gastroenterology. She will be on iron supplements and Protonix as well as her hydralazine has been increased for better blood pressure control. This plan was explained to her in details by me and she verbalized understanding. More than half an hour was spent to discharge this patient. Job ID: [id number]
--- NOTE | 2019-08-03 00:35 | EKG ---
Test Reason : Blood Pressure : / mmHG Vent. Rate : 085 BPM Atrial Rate : 085 BPM P-R Int : 088 ms QRS Dur : 118 ms QT Int : 406 ms P-R-T Axes : 048 -21 109 degrees QTc Int : 483 ms Sinus rhythm with short CT Left ventricular hypertrophy with QRS widening and repolarization abnormality Abnormal ECG Confirmed by STEWART CARNES ([id number]), newspaper managing editor TERESE MARQUEZ ([id number] on 08/03/2019 12:35:10 AM Referred By: Confirmed By:STEWART CARNES
== END 2019-07-30 11:42 | disposition home or self-care (01) ==
LOC: ERS 19:33 → 2SW 23:40
PROVIDERS: ADMIT Internal Medicine; ATTEND Internal Medicine
DX: D50.9 Iron deficiency anemia, unspecified (principal); E11.42 Type 2 diabetes mellitus with diabetic polyneuropathy; E03.9 Hypothyroidism, unspecified; I12.9 Hypertensive chronic kidney disease with stage 1 through stage 4 chronic kidney disease, or unspecified chronic kidney disease; E11.22 Type 2 diabetes mellitus with diabetic chronic kidney disease; N18.9 Chronic kidney disease, unspecified; F41.9 Anxiety disorder, unspecified; I48.0 Paroxysmal atrial fibrillation; I25.10 Atherosclerotic heart disease of native coronary artery without angina pectoris; Z79.01 Long term (current) use of anticoagulants; Z79.899 Other long term (current) drug therapy; Z88.5 Allergy status to narcotic agent; Z95.2 Presence of prosthetic heart valve
CPT/HCPCS: 51701; 71045; 80048 ×2; 80053; 82274; 82550; 82728; 82962 ×3; 83540 ×2; 83550 ×2; 83690; 83880; 84443; 84484 ×3; 85025 ×3; 85379; 87086; 93005; 93306; 94640 ×5; 94760; 96361; 96365; 99285; G0378 ×4; 36415; 36416; 81003; 81015; A4353; J0696; J7620

== ENCOUNTER 2019-11-01 17:43 | Emergency (ER) | payer MEDICARE, OTHER ==
--- NOTE | 2019-11-01 18:29 | CT ---
CT head noncontrast HISTORY: Fall. Head injury. FINDINGS: There is no evidence of acute intracranial hemorrhage or infarct. Mild diffuse cortical atr ophy and chronic ischemic small vessel disease. There is no mass effect or shift of midline structures. Large area of soft tissue injury of the scalp overlies the right frontal calvarium. Mucos al thickening evident within the mastoid air cells. IMPRESSION: No acute intracranial abnormalities are demonstrated.
--- NOTE | 2019-11-01 18:32 | CT ---
CT face noncontrast HISTORY: Fall. Facial injury. FINDINGS: The mandible, globes, and zygomatic arches are intact. There are degenerative changes of ea ch temporomandibular joint. Large area of scalp swelling and hematoma overlies the right frontal calvarium. No underlying fracture. Visualized paranasal sinuses remain well aerated. Label Folder image show s fracture of the right humeral neck that has been described on prior chest radiograph. IMPRESSION: Right frontal scalp injury. No acute osseous abnormalities are demonstrated.
--- NOTE | 2019-11-01 18:37 | RAD ---
Right wrist 3 views HISTORY: Wrist fracture. Follow-up. COMPARISON: 06/30/2019. FINDINGS: Dorsal angulation of a partially healed distal radial fracture is unchanged in alignment fr om the prior exam. The sagittally oriented intra-articular fracture plane at the articular surface of the distal radius persists on the frontal view. Moderate callus formation. Impaction and loss of i nclination are similar in appearance to the previous exam. Scaphoid waist and ulnar styloid are intact. Prominent degenerative changes of the first carpometacar pal joint. Osseous structures are severely demineralized. IMPRESSION: Partially healed distal right radial fracture without evidence of further injury. Osteoporosis.
--- NOTE | 2019-11-01 18:39 | RAD ---
Left wrist 3 views HISTORY: Fall. Injury. FINDINGS: Scaphoid waist is intact. Mild lateral subluxation at the first carpometacarpal joint where there is loss of joint space, mild osteophytosis, and subchondral sclerosis. Less prominent OsteoArthritic changes throughout the remainder of the wrist. Ulnar styloid is hypoplastic. Osseous s tructures are demineralized. No acute fracture or dislocation. IMPRESSION: Osteoarthritis. No acute osseous abnormalities are demonstrated. Atherosclerosis.
--- NOTE | 2019-11-01 18:53 | RAD ---
Right RIBS 2 views Chest one view HISTORY: Fall. Rib injury. FINDINGS: Old healed fractures involve the lateral aspect of right ribs 5 and 6. No acute injury appa rent. No evidence of pneumothorax. Cardiac silhouette is magnified and enlarged. Pulmonary vasculature upper limits of normal. Linear at electasis at the left mid lung is stable. Unhealed right humeral neck fracture is again demonstrated. [place] lateral angulation has developed sin ce the most recent chest radiograph. IMPRESSION: Old right lateral mid rib fractures. Development of apex lateral angulation of the unhealed right humeral neck fracture. Cardiomegaly.
--- NOTE | 2019-11-01 20:14 | RAD ---
Left hip 2 views HISTORY: Fall. Hip injury. FINDINGS: Hip prosthesis in place without apparent hardware lucency. Chronic appearing fragmentation of a greater trochanter enthesophyte. No acute fracture or dislocation. IMPRESSION: Left hip prosthesis. No acute osseous abnormalities are demonstrated.
--- NOTE | 2019-11-01 20:15 | RAD ---
AP pelvis one view HISTORY: Fall. Pelvic injury. FINDINGS: Left hip prosthesis partially visualized. Mild degenerative changes of the lower lumbar spi ne and right hip. Sacral alae and pelvic rings are intact. IMPRESSION: No acute osseous abnormalities are demonstrated.
== END 2019-11-01 21:05 | disposition home or self-care (01) ==
LOC: ERS 17:43
DX: S00.83XA Contusion of other part of head, initial encounter (principal); S60.211A Contusion of right wrist, initial encounter; S20.211A Contusion of right front wall of thorax, initial encounter; S52.501D Unspecified fracture of the lower end of right radius, subsequent encounter for closed fracture with routine healing; S42.201G Unspecified fracture of upper end of right humerus, subsequent encounter for fracture with delayed healing; E11.40 Type 2 diabetes mellitus with diabetic neuropathy, unspecified; I10 Essential (primary) hypertension; I48.91 Unspecified atrial fibrillation; E78.5 Hyperlipidemia, unspecified; Z87.891 Personal history of nicotine dependence; Z79.899 Other long term (current) drug therapy; X50.1XXA Overexertion from prolonged static or awkward postures, initial encounter
CPT/HCPCS: 70450; 70486; 72170